=== PATIENT | male | born 2000 | race Caucasian/White ===

== ENCOUNTER 2019-04-01 18:00 | Emergency (ER) | payer BC, OTHER ==
[~2019-04-01] VITALS: Ht 180.3 cm; Wt 73.2 kg
--- NOTE | 2019-04-01 19:10 | NUR ---
PT TO ROOM FROM LOBBY
--- NOTE | 2019-04-01 19:32 | NUR ---
ER MD GABRIEL IN TO ASSESS PT
--- NOTE | 2019-04-01 19:33 | NUR ---
PT STATES HE WAS EATING AT [employer] AND AFTER EATING HE VOMITTED, FELT DIZZINESS, AND STATES HE DOESN'T REMEMBER MUCH. DURING THIS TIME HE STATES HE 'DOESN'T REMEMBER MUCH' PT STATES HE HAS A HISTORY OF ANXIETY AND PT WITH C/O OF FEELING ANXIOUS. Addendum: 04/01/19 at 2002 by LATRICE PT STATES HE WAS EATING AT [employer] AND AFTER EATING HE VOMITTED, FELT DIZZINESS, AND STATES HE 'DOESN'T REMEMBER MUCH OF THE REST OF THE EVENING'. PT STATES HE HAS A HISTORY OF ANXIETY AND PT WITH C/O OF FEELING ANXIOUS
[2019-04-01 19:40] LABS: BASOPHILS # (AUTO) 0.02 x10^3/uL (0-0.3); BASOPHILS % (AUTO) 0 % (0-1); EOSINOPHILS # (AUTO) 0.02 x10^3/uL (0-0.8); EOSINOPHILS % (AUTO) 0 % (1-7); LYMPHOCYTES # (AUTO) 1.68 x10^3/uL (1-6.1); LYMPHOCYTES % (AUTO) 23 % (22-44); MD NO; MEAN CORPUSCULAR HEMOGLOBIN 30.2 pg (27.5-34.5); MEAN CORPUSCULAR HGB CONC 33.6 g/dL (33.2-36.2); MEAN CORPUSCULAR VOLUME 89.9 fL (81-97); MEAN PLATELET VOLUME 7.9 fL (7.4-10.4); MONOCYTES # (AUTO) 0.42 x10^3/uL (0-1.4); MONOCYTES % (AUTO) 6 % (2-9); NEUTROPHILS # (AUTO) 5.29 x10^3/uL (1.8-8.0); NEUTROPHILS % (AUTO) 71 % (42-75); PLATELET COUNT 262 x10^3/uL (130-400); RED BLOOD COUNT 5.75 x10^6/uL (4.38-5.82); RED CELL DISTRIBUTION WIDTH 12.7 % (9.4-14.8)
[2019-04-01 19:50] LABS: ALANINE AMINOTRANSFERASE 32 U/L (12-78); ALBUMIN 4.4 g/dL (3.4-5.0); ANION GAP 7 mmol/L (5-15); CALCIUM 8.9 mg/dL (8.5-10.1); CHLORIDE 110 mmol/L (98-107); CREATININE 1.02 mg/dL (0.7-1.3)
[2019-04-01 19:52] LABS: ALKALINE PHOSPHATASE 60 U/L (45-117); BILIRUBIN,TOTAL 0.9 mg/dL (0.2-1.0); SALICYLATE LEVEL < 1.7 mg/dL (2.8-20.0); TOTAL PROTEIN 7.5 g/dL (6.4-8.2)
--- NOTE | 2019-04-01 19:55 | NUR ---
PT TO THE BATHROOM WITH STEADY GAIT. STATES HE IS UNABLE TO PROVIDE URINE SAMPLE AT THIS TIME. PT GIVEN A CUP OF WATER.
[2019-04-01 19:56] VITALS: BP 121/94
--- NOTE | 2019-04-01 20:15 | NUR ---
PT AMBULATORY TO THE BATHROOM AGAIN
--- NOTE | 2019-04-01 20:24 | NUR ---
PT STILL UNABLE TO PROVIDE URINE SAMPLE. MULTIPLE CUPS OF WATER PROVIDED.
--- NOTE | 2019-04-01 21:29 | NUR ---
pt did not provide urine sample. recommended that pt follow up with [facility] for evaluation of anxiety
== END 2019-04-01 21:31 | disposition home or self-care (01) ==
LOC: ED 21:17
DX: F41.1 Generalized anxiety disorder (principal)
CPT/HCPCS: 36415; 80053; 80307; 85025; 99284